=== PATIENT | female | born 1995 | race Caucasian/White ===

== ENCOUNTER 2021-02-15 23:37 | Emergency (ER) | payer MEDICAID ==
[~2021-02-15] VITALS: Ht 157.5 cm; Wt 64.0 kg
[2021-02-16 01:23] VITALS: BP 120/78
== END 2021-02-16 01:24 | disposition home or self-care (01) ==
LOC: ER 23:37
DX: Z48.00 Encounter for change or removal of nonsurgical wound dressing (principal)
CPT/HCPCS: 99281

== ENCOUNTER 2023-05-26 16:36 | Emergency (ER) | payer MEDICAID ==
[~2023-05-26] VITALS: Ht 157.5 cm; Wt 74.8 kg
[2023-05-26 16:50] VITALS: BP 113/86; PULSE 109; RESP 16; TEMP 99; O2SAT 98
[2023-05-26] MEDS ORDERED: PSEU120T56 MT (21:13)
== END 2023-05-26 22:25 | disposition home or self-care (01) ==
LOC: ER 16:48
DX: B34.9 Viral infection, unspecified (principal)
CPT/HCPCS: 71045; 99283